=== PATIENT | male | born 1995 | race Caucasian/White ===

== ENCOUNTER 2016-06-26 14:12 | Emergency (ER) | payer OTHER | END 2016-06-26 16:30 | disposition home or self-care (01) | LOC: ER1 14:12 | DX: L02.611 Cutaneous abscess of right foot (principal); F17.210 Nicotine dependence, cigarettes, uncomplicated; Z88.1 Allergy status to other antibiotic agents | CPT/HCPCS: 10060; 87070; 87077; 87186; 87205; 99283 ==